=== PATIENT | female | born 1960 | race Caucasian/White ===

== ENCOUNTER 2020-07-13 09:41 | Outpatient (CLI) | payer OTHER ==
--- NOTE | 2020-07-13 10:32 | RAD ---
XR Chest Pa Lat STANDARD HISTORY: Cough and shortness of breath COMPARISON: None FINDINGS: The heart size is normal. The lungs are well expanded without focal areas of consolidation, pneumothorax or pleural effusions. IMPRESSION: No radiographic evidence of acute cardiopulmonary process.
== END 2020-07-13 09:42 | disposition home or self-care (01) ==
LOC: BICRAD 09:41
PROVIDERS: ATTEND Nurse Practitioner Family
DX: R06.02 Shortness of breath (principal); R05 Cough
CPT/HCPCS: 71046

== ENCOUNTER 2022-04-07 04:36 | Inpatient (IN) | payer BC ==
[2022-04-07 05:02] LABS: #Eosinphils 0.1 thou/uL (0.0-0.7); #Lymphocytes 1.1 thou/uL (1.20-3.40); #Monocytes 0.2 thou/uL (0.11-0.59); #Neutrophils 16.4 thou/uL (1.40-6.50); %Eosinophils 0.4 % (0.0-10.0); %Monocytes 1.2 % (0.0-10.0); %Neutrophils 92.4 % (42.0-75.0); Hemoglobin 16.2 g/dL (12.0-16.0); Mean Corpuscular HGB CONC 32.6 g/dL (32.0-36.0); Mean Corpuscular Hemoglobin 31.6 pg (27.0-31.0); Mean Corpuscular Volume 96.8 fL (78.0-98.0); Mean Platelet Volume 7.1 fL (7.4-10.4); Platelet Count 311 thou/uL (130-400); RBC Distribution Width 11.9 % (11.5-14.5); Red Blood Cell (RBC) Count 5.12 mill/uL (4.20-5.40); White Blood Cell (WBC) Count 17.7 thou/uL (4.8-10.8)
[2022-04-07 05:33] LABS: ALT (SGPT) 11 U/L (8-55); AST (SGOT) 15 U/L (5-34); Albumin 4.2 g/dL (3.4-4.8); Alkaline Phosphatase 87 U/L (40-110); Anion Gap 15 mmol/L (10-20); BUN (Urea Nitrogen) 6 mg/dL (9.8-20.1); Bilirubin, Total 0.2 mg/dL (0.2-1.2); Calc. Creatinine Clearance 0 mL/min (70-130); Calcium 8.9 mg/dL (7.8-10.44); Carbon Dioxide 24 mmol/L (23-31); Chloride 105 mmol/L (98-107); Globulin 3.1 g/dL (2.4-3.5); Glucose 233 mg/dL (80-115); Potassium 3.6 mmol/L (3.5-5.1); Protein, Total 7.3 g/dL (5.8-8.1); Sodium 140 mmol/L (136-145)
[2022-04-07] MEDS ORDERED: Dextrose 5 % And 0.9 % NaCl 1,000 ML IV SCH (05:45)
[2022-04-07 08:05] VITALS: BMI 24.7
[2022-04-07 08:55] LABS: Lactic Acid 3.4 mmol/L (0.5-2.2)
[2022-04-07 13:57] VITALS: BP 107/59; TEMP 97.8
[2022-04-07] MEDS ORDERED: Azithromycin 500 MG in Sodium Chloride 0.9% 250 ML 250 ML IVPB SCH (14:00)
[2022-04-07 16:14] LABS: SARS-CoV-2 PCR by NAA Not Detected (NotDetected)
[2022-04-07] MEDS ORDERED: Mometasone/Formoterol 200/5 60 PUFF INH SCH (18:30)
[2022-04-08] MEDS ORDERED: predniSONE 20 MG TAB PO SCH (09:00)
== END 2022-04-07 18:08 | disposition home or self-care (01) | DRG 871 ==
LOC: ERS 04:36 → ERHOLD 05:05 → CCU 07:58 → T4-A 13:51
PROVIDERS: ADMIT Specialist; ATTEND Specialist
PROC: 5A09357 Assistance with Respiratory Ventilation, Less than 24 Consecutive Hours, Continuous Positive Airway Pressure (ICD-10-PCS; principal; 2022-04-07)
PROC: 3E03329 Introduction of Other Anti-infective into Peripheral Vein, Percutaneous Approach (ICD-10-PCS; 2022-04-07)
DX: A41.9 Sepsis, unspecified organism (principal); J96.01 Acute respiratory failure with hypoxia; J96.02 Acute respiratory failure with hypercapnia; J44.1 Chronic obstructive pulmonary disease with (acute) exacerbation; Z20.822 Contact with and (suspected) exposure to COVID-19; F17.210 Nicotine dependence, cigarettes, uncomplicated; E05.00 Thyrotoxicosis with diffuse goiter without thyrotoxic crisis or storm; E89.0 Postprocedural hypothyroidism; J40 Bronchitis, not specified as acute or chronic; Z71.6 Tobacco abuse counseling; Z83.2 Family history of diseases of the blood and blood-forming organs and certain disorders involving the immune mechanism; Z80.9 Family history of malignant neoplasm, unspecified; Z79.899 Other long term (current) drug therapy; Z79.890 Hormone replacement therapy; Z79.51 Long term (current) use of inhaled steroids; Z79.52 Long term (current) use of systemic steroids
CPT/HCPCS: 36415; 80053; 83605; 85025; 87040; 93005; 94640; 99285; J0456; J7050; J7620; U0003; U0005

== ENCOUNTER 2022-11-10 10:27 | Inpatient (IN) | payer BC ==
[2022-11-10] MEDS ORDERED: methylPREDNISolone Sod Succ/PF 125 MG/2 ML VIAL ONE (11:08)
[2022-11-10] MEDS ORDERED: Magnesium 2 GM/50 ML BAG (IN WATER) ONE (11:08)
[2022-11-10] MEDS ORDERED: Albuterol Sulfate 2.5 mg/3 ml Neb ONE (11:09)
[2022-11-10 11:36] LABS: #Eosinphils 0.6 thou/uL (0.0-0.7); #Lymphocytes 2.1 thou/uL (1.20-3.40); #Neutrophils 10.2 thou/uL (1.40-6.50); %Basophils 0.3 % (0.0-1.0); %Lymphocytes 15.1 % (21.0-51.0); %Monocytes 6.8 % (0.0-10.0); %Neutrophils 73.7 % (42.0-75.0); Hemoglobin 16.7 g/dL (12.0-16.0); Mean Corpuscular HGB CONC 33.6 g/dL (32.0-36.0); Mean Corpuscular Hemoglobin 31.8 pg (27.0-31.0); Mean Corpuscular Volume 94.7 fl (78.0-98.0); Mean Platelet Volume 6.7 fL (7.4-10.4); Platelet Count 395 10x3/uL (130-400); RBC Distribution Width 12.2 % (11.5-14.5); Red Blood Cell (RBC) Count 5.26 mill/uL (4.20-5.40); White Blood Cell (WBC) Count 13.8 10x3/uL (4.8-10.8)
[2022-11-10 11:54] LABS: Actual Bicarbonate (HCO3v) 27 mEq/L (22-28); Analyzer IN Cardio ER; Base Excess -0.9 mEq/L (-2.0 to +3.0); Calcium, Ionized (venous) 1.18 mmol/L (1.16-1.32); Chloride (VBG) 101 mmol/L (98-106); Hemoglobin (Hb) 17.1 g/dL (11.7-16.0); Potassium (VBG) 4.75 mmol/L (3.70-5.30); Sodium 137.2 mmol/L (133-146); pH (venous) 7.28 (7.32-7.43)
[2022-11-10 12:11] LABS: ALT (SGPT) 10 U/L (8-55); AST (SGOT) 16 U/L (5-34); Albumin 4.2 g/dL (3.4-4.8); Alkaline Phosphatase 111 U/L (40-110); Anion Gap 16 mmol/L (10-20); BUN (Urea Nitrogen) 6 mg/dL (9.8-20.1); Bilirubin, Total 0.5 mg/dL (0.2-1.2); Calc. Creatinine Clearance 0 mL/min (70-130); Calcium 9.5 mg/dL (7.8-10.44); Carbon Dioxide 27 mmol/L (23-31); Chloride 103 mmol/L (98-107); Estimated GFR 90; Globulin 3.1 g/dL (2.4-3.5); Glucose 132 mg/dL (80-115); Potassium 4.5 mmol/L (3.5-5.1); Protein, Total 7.3 g/dL (5.8-8.1)
[2022-11-10 12:24] LABS: SARS-CoV-2 NAA Rapid Test Not Detected (NotDetected)
[2022-11-10 12:31] LABS: Sodium 141 mmol/L (136-145)
[2022-11-10 14:45] LABS: Troponin I Less than 0.010 ng/mL (< 0.028)
[2022-11-10] MEDS ORDERED: Acetaminophen 325 MG TAB PO PRN ×2 (14:45→16:12)
[2022-11-10] MEDS ORDERED: Ondansetron ODT 4 MG TAB SL PRN (14:45)
[2022-11-10] MEDS ORDERED: Ondansetron PF 4 MG/2 ML Vial IVP PRN ×2 (14:45→16:12)
[2022-11-10 15:21] VITALS: BMI 23.8
[2022-11-10] MEDS ORDERED: Guaifenesin DM 100-10/5 ML UDCUP PO PRN (16:12)
[2022-11-10] MEDS ORDERED: Zolpidem Tartrate 5 MG TAB PO PRN (16:12)
[2022-11-10] MEDS ORDERED: Enoxaparin Sodium 40 MG/0.4 ML SYRINGE SC SCH (17:00)
[2022-11-10 17:22] LABS: Troponin I Less than 0.010 ng/mL (< 0.028)
[2022-11-10] MEDS: methylPREDNISolone Sod Succ 40 MG VIAL IVP SCH ×2 (18:16→23:03)
[2022-11-10] MEDS: Nicotine 21 MG PATCH TD SCH (18:16)
[2022-11-10] MEDS: Mometasone 200 MCG/Formoterol 5 MCG 120 PUFF INHALER INH SCH (18:55)
[2022-11-10] MEDS: ALPRAZolam 0.5 MG TAB PO PRN (22:57)
[2022-11-10] MEDS: Atorvastatin Calcium 40 MG TAB PO SCH (22:59)
[2022-11-11 04:12] LABS: #Lymphocytes 0.9 thou/uL (1.20-3.40); #Monocytes 0.1 thou/uL (0.11-0.59); #Neutrophils 9.9 thou/uL (1.40-6.50); %Basophils 0.1 % (0.0-1.0); %Eosinophils 0.1 % (0.0-10.0); %Lymphocytes 8.3 % (21.0-51.0); %Monocytes 0.9 % (0.0-10.0); %Neutrophils 90.7 % (42.0-75.0); Hemoglobin 14.6 g/dL (12.0-16.0); Mean Corpuscular Hemoglobin 31.8 pg (27.0-31.0); Mean Corpuscular Volume 93.3 fl (78.0-98.0); Mean Platelet Volume 6.8 fL (7.4-10.4); Platelet Count 367 10x3/uL (130-400); RBC Distribution Width 12.2 % (11.5-14.5); Red Blood Cell (RBC) Count 4.61 mill/uL (4.20-5.40); White Blood Cell (WBC) Count 10.9 10x3/uL (4.8-10.8)
[2022-11-11 04:24] LABS: Anion Gap 14 mmol/L (10-20); BUN (Urea Nitrogen) 13 mg/dL (9.8-20.1); Calc. Creatinine Clearance 76 mL/min (70-130); Calcium 9.1 mg/dL (7.8-10.44); Carbon Dioxide 24 mmol/L (23-31); Cardiac Risk 2.9 (Less than 4.5); Chloride 102 mmol/L (98-107); Cholesterol 155 mg/dl (< 200 Desired); Estimated GFR 99; Glucose 162 mg/dL (80-115); HDL Cholesterol 53 mg/dL (>60 Neg Risk); LDL Cholesterol, Calculated 83 mg/dL; Potassium 4.6 mmol/L (3.5-5.1); Sodium 135 mmol/L (136-145); Triglycerides 95 mg/dL (Less than 150)
[2022-11-11] MEDS: methylPREDNISolone Sod Succ 40 MG VIAL IVP SCH ×4 (06:57→23:15)
[2022-11-11] MEDS: Levothyroxine Sodium 75 MCG TAB PO SCH (06:58)
[2022-11-11 07:46] LABS: Hemoglobin A1c 6.1 % (4.0-6.0)
[2022-11-11] MEDS: Mometasone 200 MCG/Formoterol 5 MCG 120 PUFF INHALER INH SCH ×2 (07:59→18:28)
[2022-11-11] MEDS: Bupropion 150 MG SR TAB PO SCH (08:54)
[2022-11-11] MEDS ORDERED: FLU VACC QS2022-23(6MOS UP)/PF 60 MCG/0.5 ML SYRINGE IM ONE (09:00)
[2022-11-11] MEDS ORDERED: Acetylcysteine 20% 200 MG/ML 30 ML VIAL INH SCH (13:00)
[2022-11-11] MEDS: Nicotine 21 MG PATCH TD SCH (17:32)
[2022-11-11] MEDS: Atorvastatin Calcium 40 MG TAB PO SCH (20:42)
[2022-11-11] MEDS ORDERED: Montelukast Sodium 10 mg Tablet PO SCH (21:00)
[2022-11-11] MEDS: ALPRAZolam 0.5 MG TAB PO PRN (21:18)
[2022-11-12] MEDS: methylPREDNISolone Sod Succ 40 MG VIAL IVP SCH (05:07)
[2022-11-12] MEDS: Levothyroxine Sodium 75 MCG TAB PO SCH (05:07)
[2022-11-12 06:35] LABS: Mean Corpuscular HGB CONC 34.1 g/dL (32.0-36.0); Mean Corpuscular Hemoglobin 31.8 pg (27.0-31.0); Mean Corpuscular Volume 93.2 fl (78.0-98.0); Platelet Count 392 10x3/uL (130-400); RBC Distribution Width 12.2 % (11.5-14.5); Red Blood Cell (RBC) Count 4.42 mill/uL (4.20-5.40); White Blood Cell (WBC) Count 23.6 10x3/uL (4.8-10.8)
[2022-11-12 06:47] LABS: Anion Gap 13 mmol/L (10-20); BUN (Urea Nitrogen) 17 mg/dL (9.8-20.1); Calc. Creatinine Clearance 73 mL/min (70-130); Calcium 9.2 mg/dL (7.8-10.44); Carbon Dioxide 26 mmol/L (23-31); Chloride 101 mmol/L (98-107); Estimated GFR 98; Glucose 146 mg/dL (80-115); Potassium 4.4 mmol/L (3.5-5.1); Sodium 136 mmol/L (136-145)
[2022-11-12] MEDS: Mometasone 200 MCG/Formoterol 5 MCG 120 PUFF INHALER INH SCH (07:38)
[2022-11-12] MEDS: Bupropion 150 MG SR TAB PO SCH (08:17)
[2022-11-12 09:23] LABS: Band 2 % (5-11); Lymphocytes 4 % (21-51); MDiff Complete? YES; Monocytes 1 % (0-10); Neutrophil 93 % (42-75); RBC Morphology Normal
[2022-11-12 10:30] VITALS: BP 135/80; TEMP 98
== END 2022-11-12 10:43 | disposition home or self-care (01) | DRG 189 ==
LOC: ERS 10:27 → IMCU/EMU 13:08 → T4-B 11-11 21:07
PROVIDERS: ADMIT Specialist; ATTEND Specialist
PROC: 5A09357 Assistance with Respiratory Ventilation, Less than 24 Consecutive Hours, Continuous Positive Airway Pressure (ICD-10-PCS; principal; 2022-11-10)
DX: J96.21 Acute and chronic respiratory failure with hypoxia (principal); J44.1 Chronic obstructive pulmonary disease with (acute) exacerbation; E87.29 Other acidosis; E78.5 Hyperlipidemia, unspecified; E78.00 Pure hypercholesterolemia, unspecified; F41.9 Anxiety disorder, unspecified; F17.210 Nicotine dependence, cigarettes, uncomplicated; E03.9 Hypothyroidism, unspecified; E11.9 Type 2 diabetes mellitus without complications; Z20.822 Contact with and (suspected) exposure to COVID-19; Z98.890 Other specified postprocedural states; Z90.710 Acquired absence of both cervix and uterus
CPT/HCPCS: 36415; 71045; 80048; 80053; 80061; 82805; 83036; 83735; 84443; 84484; 85025; 93005; 94640; 94644; 94660; 94664; 96365; 96375; J1650; J2920; J2930; J3475; J7611; J7620